=== PATIENT | male | born 1955 | race Hispanic/Latino ===

== ENCOUNTER 2017-09-02 11:14 | Emergency (ER) | payer MEDICAID, BC, SELFPAY ==
[2017-09-02] MEDS: ONDANSETRON 4MG/2ML VIAL (J2405) IV (11:30)
[2017-09-02] MEDS: NS 1,000 ML IV ×2 (11:30→14:30)
[2017-09-02 11:32] LABS: BASO % 0.5 % (0.0-1.0); EOS # 0.1 10^3/uL (0.0-0.50); EOS % 1.5 % (0.0-3.0); HEMATOCRIT 42.8 % (42.0-52.0); HEMOGLOBIN 14.4 g/dl (14.0-18.0); IMMATURE GRANULOCYTE % 0.6 % (0-0); MEAN CORPUSCULAR HEMOGLOBIN 28.5 pg (27.0-33.0); MEAN CORPUSCULAR HGB CONC 33.6 g/dl (32.0-36.5); MEAN CORPUSCULAR VOLUME 84.6 fl (80.0-96.0); MONO # 0.4 10^3/uL (0.0-0.8); MONO % 6.6 % (0.0-5.0); NEUTROPHILS # 2.6 10^3/uL (1.8-7.7); NEUTROPHILS % 41.8 % (36.0-66.0); PLATELET COUNT, AUTOMATED 256 10^3/uL (150-450); RED BLOOD COUNT 5.06 10^6/uL (4.30-6.10); RED CELL DISTRIBUTION WIDTH 13.5 % (11.5-14.5); WHITE BLOOD COUNT 6.2 10^3/uL (4.0-10.0)
[2017-09-02 12:08] LABS: D-DIMER QUANT < 270.0 ng/ml (<500)
[2017-09-02 13:13] LABS: ALBUMIN 4.1 GM/DL (3.2-5.2); ALBUMIN/GLOBULIN RATIO 1.41 (1.00-1.93); ALKALINE PHOSPHATASE 84 U/L (45-117); ALT/SGPT 44 U/L (12-78); ANION GAP 10 MEQ/L (8-16); AST/SGOT 49 U/L (7-37); BILIRUBIN,DIRECT 0.4 MG/DL (0.0-0.2); BILIRUBIN,TOTAL 0.8 MG/DL (0.2-1.0); BLOOD UREA NITROGEN 14 MG/DL (7-18); CALCIUM LEVEL 8.9 MG/DL (8.8-10.2); CARBON DIOXIDE LEVEL 25 MEQ/L (21-32); CHLORIDE LEVEL 110 MEQ/L (98-107); CPK CREATINE PHOSPHOKINASE 230 U/L (39-308); CREATININE FOR GFR 1.09 MG/DL (0.70-1.30); GLOMERULAR FILTRATION RATE > 60.0 (>49); GLUCOSE, FASTING 181 MG/DL (80-110); LIPASE 137 U/L (73-393); POTASSIUM SERUM 3.5 MEQ/L (3.5-5.1); SODIUM LEVEL 145 MEQ/L (136-145); TROPONIN I < 0.02 NG/ML (< 0.10)
[2017-09-02 13:19] LABS: CK-MB VALUE MASS 1.3 NG/ML (0.0-3.6); INR 0.98; MB/CK RELATIVE INDEX 0.56 (< OR =4); PARTIAL THROMBOPLASTIN TIME 22.9 SECONDS (26.8-37.9); PROTHROMBIN TIME 13.1 SECONDS (12.4-14.5); THYROID STIMULATING HORMONE 0.423 uIU/ML (0.358-3.740)
[2017-09-02] MEDS: CLOPIDOGREL 300 MG TAB (PLAVIX) PO (14:04)
[2017-09-02] MEDS: NITROGLYCERIN 0.4 MG SUBL TABLET SL (16:42)
[2017-09-02] MEDS ORDERED: fentaNYL 100 MCG/2 ML INJECTION (J3010) As Ordered (16:43)
[2017-09-02] MEDS: fentaNYL 100 MCG/2 ML INJECTION (J3010) IV (16:50)
[2017-09-02] MEDS: HEPARIN DRIP 25,000 UNITS in APPROPRIATE DILUENT 1 EA IV (16:53)
[2017-09-02] MEDS: HEPARIN SOD (PORCINE) 5000 UNITS/ML VIAL IV (16:57)
== END 2017-09-02 17:23 | disposition short-term general hospital (02) ==
LOC: M ED 11:14
DX: R07.9 Chest pain, unspecified (principal); I20.0 Unstable angina; I45.10 Unspecified right bundle-branch block; I25.10 Atherosclerotic heart disease of native coronary artery without angina pectoris; I25.2 Old myocardial infarction; F17.200 Nicotine dependence, unspecified, uncomplicated
CPT/HCPCS: J2405